=== PATIENT | male | born 1965 | race Caucasian/White ===

== ENCOUNTER 2019-04-16 16:00 | Emergency (ER) | payer OTHER ==
[2019-04-16] MEDS ORDERED: Tetracaine HCl/PF 0.5% 4 ML Bottle EYELF ONE (16:12)
--- NOTE | 2019-04-16 16:58 | EDM.PDOC ---
ED HPI GENERAL MEDICAL PROBLEM - General Chief Complaint: Eye Problems Stated Complaint: DEBRIS IN LEFT EYE Time Seen by Provider: 04/16/19 16:12 Source of Information: Reports: Patient History Limitations: Reports: No Limitations - History of Present Illness INITIAL COMMENTS - FREE TEXT/NARRATIVE: HISTORY AND PHYSICAL: History of present illness: Patient is a 53-year-old male with concern of getting tidal dust into his eyes 5 days ago. Patient states his eyes have been hurting over the last 2-3 days and he hasn't been able to keep them open due to pain and discomfort. Patient states he did try to irrigate his eyes with Visine and was able to improve his discomfort of the right eye but the left eye has been quite bothersome to him. Patient states that he does not wear contacts or glasses. Patient denies any other symptoms or concerns. Patient denies fever, chills, chest pain, shortness of breath, or cough. Denies headache, neck stiff ness, change in vision, syncope, or near syncope. Denies nausea, vomiting, abdominal pain, diarrhea, constipation, or dysuria. Has not noted any blood in urine or stool. Patient has been eating and drinking appropriately. Review of systems: As per history of present illness and below otherwise all systems reviewed and negative. Past medical history: As per history of present illness and as reviewed below otherwise noncontributory. Surgical history: As per history of present illness and as reviewed below otherwise noncontributory. Social history: See social history for further information Family history: As per history of present illness and as reviewed below otherwise noncontributory. Physical exam: General: Patient is alert, oriented, and in no acute distress. Patient sitting comfortably on exam table. HEENT: Normocephalic, pupils equal and reactive bilaterally, negative for conjunctival pallor or scleral icterus, mucous membranes moist, TMs normal bilaterally, throat clear, neck supple, nontender, trachea midline. No drooling or trismus noted. No meningeal signs. No hot potato voice noted. EOMs intact bilaterally. Visual acuity intact bilaterally. There is a pinpoint foreign body of the left cornea at the 10 o'clock position. Bilateral eyes are injected. Lungs: Clear to auscultation, breath sounds equal bilaterally, chest nontender. Heart: S1S2, regular rate and rhythm without overt murmur Abdomen: Soft, nondistended, nontender. Negative for masses or hepatosplenomegaly. Negative for costovertebral tenderness. Pelvis: Stable nontender. Genitourinary: Deferred. Rectal: Deferred. Skin: Intact, warm, dry. No lesions or rashes noted. Extremities: Atraumatic, negative for cords or calf pain. Neurovascular unremarkable. Neuro: Awake, alert, oriented. Cranial nerves II through XII unremarkable. Cerebellum unremarkable. Motor and sensory unremarkable throughout. Exam nonfocal. Notes: I did call and speak to Dr. Salamanca, ophthalmology on-call, and thoroughly discussed patient's case with him. Per Dr. Salamanca, will prescribe TobraDex eye drops and follow-up with him this coming week. Dr. Salamanca states that if patient is not feeling better come Thursday, that he will see him Thursday, and if patient does have improvement, to have patient set up a follow up for this week. Voices understanding and is agreeable to plan of care. Denies any further questions or concerns at this time. Diagnostics: Florescence eye stain Therapeutics: Tetracaine Prescription: TobraDex ophthalmic Impression: Foreign body, left eye Bilateral eye irritation Plan: 1. Apply medication as prescribed. Use [id number] eye drop tears frequently throughout the day as discussed. 2. You can alternate ibuprofen and Tylenol as directed for pain and discomfort. 3. If you are not feeling better by Thursday, call Dr. Salamanca's clinic to set up an appointment time. The number has been provided above for you to call and set up an appointment. If you do have improvement, set up an appointment with him for this week. 4. Return to the ED as needed and as discussed. Definitive disposition and diagnosis as appropriate pending reevaluation and review of above. left eye Pain Score (Numeric/FACES): 8 - Related Data Allergies Allergy/AdvReac Type Severity Reaction Status Date / Time No Known Allergies Allergy Verified 04/16/19 16:16 Home Meds: Home Meds . [No Known Home Meds] 04/16/19 [History] Past Medical History Cardiovascular History: Reports: Hypertension Social & Family History - Family History Family Medical History: Noncontributory - Tobacco Use Smoking Status *Q: Current Some Day Smoker Years of Tobacco use: 1 Packs/Tins Daily: 1 - Recreational Drug Use Recreational Drug Use Frequency: Patient Refuses To Answer ED ROS GENERAL - Review of Systems Review Of Systems: ROS reveals no pertinent complaints other than HPI. ED EXAM GENERAL W FULL EYE - Physical Exam Exam: See Below (See dictation) Course - Vital Signs Last Recorded V/S: Last Vital Signs Temp 98.1 F 04/16/19 16:17 Pulse 84 04/16/19 16:17 Resp 14 04/16/19 16:17 BP 188/114 H 04/16/19 16:17 Pulse Ox 97 04/16/19 16:17 - Orders/Labs/Meds Meds: Medications Discontinued Medications Generic Name Dose Route Start Last Admin Trade Name Freq PRN Reason Stop Dose Admin Tetracaine HCl 1 ml 04/16/19 16:12 Tetracaine 0.5% Steri-Unit Cata EYELF 04/16/19 16:13 ASDIRECTED ONE Departure - Departure Time of Disposition: 17:10 Disposition: Home, Self-Care 01 Clinical Impression: Irritation of both eyes Foreign body, eye Qualifiers: Encounter type: initial encounter Laterality: left Qualified Code(s): T15.92XA - Foreign body on external eye, part unspecified, left eye, initial encounter - Discharge Information Referrals: PCP,None [Primary Care Provider] - Forms: ED Department Discharge Additional Instructions: The following information is given to patients seen in the emergency department who are being discharged to home. This information is to outline your options for follow-up care. We provide all patients seen in our emergency department with a follow-up referral. The need for follow-up, as well as the timing and circumstances, are variable depending upon the specifics of your emergency department visit. If you don't have a primary care physician on staff, we will provide you with a referral. We always advise you to contact your personal physician following an emergency department visit to inform them of the circumstance of the visit and for follow-up with them and/or the need for any referrals to a consulting specialist. The emergency department will also refer you to a specialist when appropriate. This referral assures that you have the opportunity for follow-up care with a specialist. All of these measure are taken in an effort to provide you with optimal care, which includes your follow-up. Under all circumstances we always encourage you to contact your private physician who remains a resource for coordinating your care. When calling for follow-up care, please make the office aware that this follow-up is from your recent emergency room visit. If for any reason you are refused follow-up, please contact the [facility] Emergency Department at and asked to speak to the emergency department charge nurse. [facility] [address] [address] [id number] 1. Apply medication as prescribed. Use [id number] eye drop tears frequently throughout the day as discussed. 2. You can alternate ibuprofen and Tylenol as directed for pain and discomfort. 3. If you are not feeling better by Thursday, call Dr. Salamanca's clinic to set up an appointment time. The number has been provided above for you to call and set up an appointment. If you do have improvement, set up an appointment with him for this week. 4. Return to the ED as needed and as discussed.
== END 2019-04-16 17:14 | disposition home or self-care (01) ==
LOC: MW.ED 16:00
DX: T15.02XA Foreign body in cornea, left eye, initial encounter (principal); H57.89 Other specified disorders of eye and adnexa; F17.210 Nicotine dependence, cigarettes, uncomplicated; X58.XXXA Exposure to other specified factors, initial encounter; Y92.89 Other specified places as the place of occurrence of the external cause; Y99.0 Civilian activity done for income or pay
CPT/HCPCS: 99283